=== PATIENT | female | born 1970 | race Caucasian/White ===

== ENCOUNTER 2024-09-20 16:03 | Emergency (ER) | payer OTHER, SELFPAY ==
[2024-09-20 16:14] VITALS: BP 127/81; PULSE 77; RESP 22; O2SAT 97; BMI 26.6
--- NOTE | 2024-09-20 16:28 | CRLHL7_ITS ---
For Patients: As a result of the Cures Act, medical imaging exams and procedure reports are released immediately into your electronic medical record. You may view this report before your referring provider. If you have questions, please contact your health care provider. Indication: HIT HAND WITH TOUCH UP CARVER. Technique: Left hand 3 views. Comparison: None. Findings/Impression: Acute fracture of the 2nd distal phalanx radial base with minimal displacement of the dominant fracture fragment. There are a few thin hyperdense foci adjacent to the volar aspect of the fracture, which are favored to reflect small displaced fracture fragments, less likely foreign bodies. No dislocation. There is soft tissue irregularity overlying the fracture, likely posttraumatic. There is also focal soft tissue swelling along the volar aspect of the 3rd middle phalanx which is nonspecific. No evident additional fractures. Dictated by Nri Ridley MD @ 09/20/2024 5:04:05 PM (Electronically Signed)
[2024-09-20] MEDS: TETANUS/DIPHTH/PERTUSSIS 0.5 ML SYRINGE IM (16:55)
--- NOTE | 2024-09-20 17:22 | ED_ITS ---
HPI - Wound/Laceration General Chief Complaint: Laceration/Wound Stated Complaint: L fingers lac Time Seen by Provider: 09/20/24 16:13 History of Present Illness HPI narrative: Patient is a 53-year-old woman who was trimming bushes today when she inadvertently lacerated the 2nd and 3rd digits on the palmar aspect of her left hand. She was able to achieve hemostasis but presents for further evaluation and treatment. Her tetanus shot is not up-to-date she has no neurovascular abnormalities other than the acute bleeding. X-ray of the hand shows a minimally displaced fracture of the distal 2nd digit. No other significant findings. Patient has no other injuries. Pain is moderate. Related Data Home Medications ?Medication ?Instructions ?Recorded ?Confirmed No Known Home Medications 09/20/24 09/20/24 Allergies Allergy/AdvReac Type Severity Reaction Status Date / Time Milk Containing Products AdvReac GI upset Verified 09/20/24 16:14 (Dairy) wheat AdvReac GI upset Verified 09/20/24 16:14 Review of Systems Status of ROS: Reports: 10 or more systems reviewed and unremarkable except as noted in History and below PFSH PFSH Social History Smoking Status: Never smoker How often do you have a drink containing alcohol: never AUDIT-C Alcohol total score: 0 Non-prescribed substance use: denies use Exam Narrative: Exam Narrative: EXAM GENERAL: Patient appears comfortable and well. EYES: No scleral icterus. LYMPH: No supraclavicular or cervical lymphadenopathy. SKIN: Lacerations on the 1st and 2nd digit palmar aspect. The 2nd digit laceration is approximately 3 cm in length the laceration on the 3rd digit is 2 cm in length. EXT: No dependent lower extremity pedal edema. HEART: Regular rate and rhythm with no murmurs, rubs, or gallops. LUNGS: Clear to auscultation bilaterally with no crackles or wheezes. ABD: Soft, non tender, non distended. PSYCH: Good eye contact, speech is not pressured. Const: Vital Signs, click to edit/add: Vital Signs - 24 hr 09/20/24 16:14 Pulse Rate [Pulse Oximeter] 77 Respiratory Rate 22 Blood Pressure [Ri ght Upper Arm] 127/81 Pulse Oximetry 97 Oxygen Delivery Me thod Room Air Course Course ED Course: Wound was carefully cleaned with soap and water. Digital block was performed with roughly 4 mL of 1% lidocaine without epinephrine. After explaining the ri sks and benefits I did close both defects using 3-0 Ethilon suture in a total of 13 sutures to approximate the tissue. We then splint and leigh taped the fractured 2nd digit. Vital Signs Vital signs: Initial Vital Signs Pulse Rate 77 09/20/24 16:14 Respiratory Rate 22 09/20/24 16:14 Blood Pressure 127/81 09/20/24 16:14 Blood Pressure Mean 96 09/20/24 16:14 Blood Pressure Position Sitting 09/20/24 16:14 Pulse Oximetry 97 09/20/24 16:14 Oxygen Delivery Method Room Air 09/20/24 16:14 Vital Signs Pulse Rate 77 09/20/24 16:14 Respiratory Rate 22 09/20/24 16:14 Blood Pressure 127/81 09/20/24 16:14 Pulse Oximetry 97 09/20/24 16:14 Oxygen Delivery Method Room Air 09/20/24 16:14 Pulse Rate 77 09/20/24 16:14 Respiratory Rate 22 09/20/24 16:14 Blood Pressure 127/81 09/20/24 16:14 Pulse Oximetry 97 09/20/24 16:14 Oxygen Delivery Method Room Air 09/20/24 16:14 Medications Administered Medications: Discontinued Medications Generic Name Dose Route Start Last Admin Trade Name Freq PRN Reason Stop Dose Admin Diphtheria/Tetanus/Acell Pertussis 0.5 ml 09/20/24 16:44 09/20/24 16:55 Tetanus/Diphth/Pertussis 0.5 Ml Syringe IM 09/20/24 16:45 0.5 ml .ONCE ONE Administration MDM - Wound/Laceration MDM Narrative Medical decision making narrative: Patient presents with an acute laceration to the left hand. There is underlying fracture I will be treating her with Augmentin. We did update her tetanus shot. We did provide digital block and cleaned the wounds and closed the wounds with a total of 13 sutures. We then leigh taped and splinted the 2nd digit and instructed her on wound care. She will have her sutures removed and repeat assessment of the fracture and 10 days. Discharge Plan Discharge Clinical Impression: Laceration, Finger fracture Instructions: Laceration (ED), Finger Fracture (ED) Additional Instructions: Splint or leigh-taped to keep fracture stable Apply a dressing changes with bacitracin daily Keep wound clean Suture removal and repeat assessment at her primary care clinic in 10 days. Augmentin as directed Activity Level: No Restrictions Discharge Diet: Regular Prescriptions: No Action No Known Home Medications Follow Up/Referrals: Provider,Not a Local [Primary Care Provider] - Stand Alone Forms: [employer] Info Instructions
== END 2024-09-20 17:55 | disposition home or self-care (01) ==
PROVIDERS: Emergency Provider Internal Medicine; Visit Provider Internal Medicine
DX: S61.211A Laceration without foreign body of left index finger without damage to nail, initial encounter (principal); S61.213A Laceration without foreign body of left middle finger without damage to nail, initial encounter; W27.8XXA Contact with other nonpowered hand tool, initial encounter; Y93.H2 Activity, gardening and landscaping
CPT/HCPCS: 12002; 73120; 90471; 90715; 99283